=== PATIENT | female | born 1970 | race Caucasian/White ===

== ENCOUNTER 2025-08-28 21:26 | Emergency (ER) | payer OTHER, SELFPAY ==
--- OUTSIDE RECORDS SUMMARY | 2025-08-28 21:28 | XMS_ITS | Clinical Summary ---
Author Organization [employer] [facility] Address [address] [place] [address] Care Team Providers Care Flame Gouger Name Role Phone Day Vincent MD Primary Care Provider [phone] Sim Almazan MD Unavailable [phone] Allergies No known active allergies Medications No known medications Active Problems ProblemNoted DateDiagnosed DatePituitary igueef941666Klkznwhi84/12/2020 Ctngkihcwfbl95/12/2020History of Lyme ovrjfpc2301/05/2017Vitamin D deficiency 01/09/2014 Immunizations ImmunizationAdministration DatesNext DueCOVID-19 VACCINE SPIKEVAX (MODERNA 50MCG/0.5ML) 12YO+ PFS4COVID-19 vaccine (Pfizer-BioNTech 30mcg/0.3mL) 12YO+ BIVALENT MD IANV109/12/2021 Family History Medical HistoryRelationNameCommentsAlcohol/DrugFatherdrinks currently Cancer-colonFatherGlaucomaFatherNo Known ProblemsHalf-BrotherLung cancerMaternal GrandfatherDiabetesMaternal GrandmotherAlcohol/DrugMotherrecovering alcoholic DementiaMotherDiabetesMotherPsychiatric illnessMotherdepressionStrokeMotherTIA Coronary artery diseasePaternal GrandfatherCancer-breastPaternal Grandmother OsteoporosisPaternal GrandmotherDiabetesSistergestationalGood HealthSon 1 AllergiesSon 2Good HealthSon 2RelationNameStatusCommentsFatherAliveHalf-Brother AliveMaternal GrandfatherDeceasedMaternal GrandmotherDeceasedMotherAlivePaternal GrandfatherDeceasedPaternal GrandmotherDeceasedSisterAliveSon 1AliveSon 2Alive Social History Tobacco UseTypesPacks/DayYears UsedDateSmoking Tobacco: NeverSmokeless Tobacco: Never Tobacco Cessation:Counseling Given: Yes Alcohol UseStandard Drinks/WeekCommentsNo0 (1 standard drink = 0.6 oz pure alcohol)PHQ-2AnswerDate RecordedPHQ-2 TOTAL [id number] Connections AnswerDate RecordedFrequency of Communication with Friends and FamilyNot on file 04/30/2024Financial Resource StrainAnswerDate RecordedDifficulty of Paying Living Fciirrht140ifficulty of Paying Living ExpensesNot on file 04/28/2023Food InsecurityAnswerDate RecordedWorried About Running Out of Food in the Last Upmj468Transportation NeedsAnswerDate RecordedLack of Transportation (Medical)Housing StabilityAnswerDate RecordedUnable to Pay for Housing in the Last Evmo772regnantCommentsNoSex and Gender InformationValueDate RecordedSex Assigned at BirthNot on fileLegal SexFemale 09/12/2012 5:41 AM CSTGender IdentityNot on fileSexual OrientationNot on file Obstetrics History GravidaParaTermPretermABIABSABEctopicMultipleLivingLive Zazqba51799EfhxGiazjwtJO Total LaborLabor/2nd/0vmGsjuqdBfjKgafJlwuFLBSmwI8L6VfsnHptgReskFyhjBR Last Filed Vital Signs Vital SignReadingTime TakenCommentsBlood Tqgptdcs272/6703 2:45 PM CDT Sgijq097011/10/2023 2:45 PM BWGEhyleobkmpo27.8 ??C (98.3 ??F)12/04/2016 9:25 AM CDTRespiratory Ymai774012/04/2016 9:25 AM CDTOxygen Ofvvzjupjt01%04/28/2023 10:31 AM CDTInhaled Oxygen Concentration--Zqdile30.7 kg (122 lb 14.4 oz)11/10/2023 2:45 PM NXVIcvbhl774.6 cm (5' 9.53)03/17/2023 11:17 AM CDTBody Mass Index17.87 03/17/2023 11:17 AM CDT Plan of Treatment Health MaintenanceDue DateLast DoneCommentsHIV for age 15-6507/09/1984Hepatitis C screening for age 18-7907/09/1987Hepatitis B series for 19+ (1 of 3 - 19+ 3- dose series)1988Colonoscopy through age 7507/09/2014Pneumococcal series for age 50+ (1 of 1 - PCV)2019Zoster (shingles) series for age 50+ (1 of 2)2019Tetanus fceknvy82 (Declined)Mammogram for age 40-, 12/13/2012MI (ht and wt on same day) for age 18+ /, 12/17/2021, 05/09/2021, Additional history exists Depression screening for age 12+/, 04/29/2021, 10/12/2019, Additional history existsCOVID-19 vaccine series (2024- season)2025 09/20/2023, 07/13/2022, 08/07/2021, Additional history existsInfluenza Vaccine (#1)04/30/2025Lipids for age 45-7506004/29/2021ap test for age 21-65 , 05/09/2021, 12/10/2016, Additional history existsRSV vaccine for adults or (1 - 1-dose 75+ series)2044 Procedures Procedure NamePriorityDate/TimeAssociated DiagnosisCommentsGYN THIN PREP PAP SCREEN MFBOTHVkscxtx19/10/2021 2:50 PM CDT Screening for cervical cancer XR MAMMO NARGIS BILAT TKYWBXPiysadm71/07/2021 3:32 PM CDT Encounter for screening mammogram for malignant neoplasm of breast LIPID PANEL W REFLEX MEASURED SIKVfmscqt87/31/2021 3:28 PM CDT Retinal hemorrhage of both eyes from Last 3 Months or Most Recently Relevant to Health Maintenance Results * SALES HUNTER THIN PREP PAP SCREEN IMAGED [[id number]] (05/09/2021 2:50 PM CDT)Component ValueRef RangeTest MethodAnalysis TimePerformed AtPathologist SignatureCase ReportGynecologic Cytology Report ? Case: [id number] ? Authorizing Provider: ??Day Vincent MD ? Collected: ? 05/09/2021 1450 ? Ordering Location: ? [facility] ?? Received: ?05/09/2021 1525 ? Clinic ? First Screen: ?Lev Matos ? Rescreen: ?Howie Verduzco ? Pathologist: ? Miguel Olivo MD ? Specimen: ?SALES HUNTER ThinPrep Vial Screening, Cervical ? 05/26/2021 9:14 AM [facility]-CENTRAL LABORATORY INTERPRETATION/RESULTNEGATIVE FOR INTRAEPITHELIAL LESION OR MALIGNANCY (NIL) (none)05/26/2021 9:14 AM [facility]-CENTRAL LABORATORY at 0914 CDTOTHER NON-NEOPLASTIC FINDING(S)See Educational Notes and Kmnknuopixn21/27/2021 9:14 AM [facility]-CENTRAL LABORATORYOTHEREndometrial cells in a woman more than 45 years of age.05/26/2021 9:14 AM [facility]- CENTRAL LABORATORYEDUCATIONAL NOTES & SUGGESTIONSEndometrial cells after the age of 45, particularly out of phase or after menopause, may be associated with benign endometrium, hormonal alterations and less commonly with endometrial uterine abnormalities. Clinical correlation is recommended.05/26/2021 9:14 AM [facility] LABORATORY-CENTRAL LABORATORYSPECIMEN ADEQUACYSatisfactory for evaluation Endocervical component ysjjnbg5405/26/2021 9:14 AM [facility]- CENTRAL LABORATORYHPV REQUESTHPV and PAP05/26/2021 9:14 AM [facility]-CENTRAL LABORATORYDate of LMP 9:14 AM [facility]-CENTRAL LABORATORYLast Pap Date12/10 9:14 AM [facility] LABORATORY-CENTRAL LABORATORYLast Pap LsnfyiERV11/27/2021 9:14 AM [facility]-CENTRAL LABORATORYAbnormal Pap or [place] Bx in last 5 yyjjxVj6305/26/2021 9:14 AM [facility]AL LABORATORY Menstrual StatusRegular Rsbsxid3705/26/2021 9:14 AM [facility] LABORATORYColp Bx Done KxwyqCe4805/26/2021 9:14 AM [facility] LABORATORYAdditional InformationNone given05/26/2021 9:14 AM [facility] LABORATORYComment: Cytology is screened at [facility] - [address], [place] [address] and [facility] - [address], [place] [address] and [facility] - [address] [place] [address] Interpreted at [facility] - [address], [place] [address] Automated BuvcvkYdaumfklfa48/27/2021 9:14 AM [facility] LABORATORYComment:Specimen processed successfully by automated political research scientist device, ThinPrep Imaging System, [employer]ANCILLARY TESTING GYNHPV Ordered, Please see separate hxihbx0405/26/2021 9:14 AM [facility] LABORATORYNoteThe pap test is a screening technique, not a diagnostic procedure. It is used primarily to screen for squamous cancers and precursor lesions. Published studies have shown that it is subject to both false negative and false positive results. The pap test should not be used as the sole means to diagnose or exclude pre-malignant and malignant lesions.05/26/2021 9:14 AM [facility] LABORATORYSpecimen (Source)Anatomical Location / LateralityCollection Method / VolumeCollection TimeReceived TimeOther (Cervical) Non-Blood / Xcwnejr5505/09/2021 2:50 PM CDT05/09/2021 3:25 PM CDT Narrative Authorizing ProviderResult TypeResult StatusDay Vincent MD PATHOLOGY/CYTOLOGYFinal ResultPerforming OrganizationAddressCity/State/ZIP Code Phone Number [facility] [address] [place] [address], [place] * XR MAMMO NARGIS BILAT SCREEN (05/06/2021 3:32 PM CDT)Anatomical RegionLaterality ModalityBREASTS, Breast Left, Breast RightBilateralMammographySpecimen (Source)Anatomical Location / LateralityCollection Method / VolumeCollection TimeReceived Time Impressions 05/08/2021 4:23 PM CDT There is no radiographic evidence for malignancy. Recommend annual mammograms. MAMMOGRAM ASSESSMENT: ??ACR 1 Negative PATIENTS: You will also receive a letter with your examination results in an easy to read format. ??If you have questions about your results, please contact your referring provider. Narrative 05/08/2021 4:23 PM CDT For Patients: As a result of the Century Cures Act, medical imaging exams and procedure reports are released immediately into your electronic medical record. You may view this report before your referring provider. If you have questions, please contact your health care provider. XR MAMMO NARGIS BILAT SCREEN [[id number]] CLINICAL HISTORY: ??This is an asymptomatic 50 y.o. patient. INDICATION FOR EXAM: Mammogram Screening. TECHNIQUE: CC & MLO views were obtained. This study was evaluated with the assistance of Computer-Aided Detection. Breast Tomosynthesis was used in interpretation. COMPARISON FILM: Yes 12/13/12 [employer] ?? FINDINGS: ??The breasts are heterogeneously dense, which may obscure small masses. There are no dominant masses, suspicious micro calcifications or areas of architectural distortion. Authorizing ProviderResult TypeResult StatusMelkandi Vincent MDMAMMOFinal Result * (ABNORMAL) LIPID PANEL W REFLEX MEASURED LDL (04/29/2021 3:28 PM CDT)Component ValueRef RangeTest MethodAnalysis TimePerformed AtPathologist Signature CHOLESTEROL,RKYMO298(H)100 - 199 mg/dL04/30/2021 2:28 PM [facility] LABORATORY-CENTRAL DSCGVACLTJPWAAWYCLXDEXI47<150 mg/dL04/30/2021 2:28 PM CDT [facility] LABORATORY-CENTRAL LABORATORYHDL QUYBYQQNGMS518>40 mg/dL 04/30/2021 2:28 PM [facility] LABORATORY-CENTRAL LABORATORYNON-HDL ODYKYCNIADG914(H)<145 mg/dl04/30/2021 2:28 PM [facility] LABORATORY- CENTRAL LABORATORYCHOL/HDL RATIO2.69<4.5009 2:28 PM [facility] LABORATORY-CENTRAL LABORATORYLDL NTMEJARTZBA409(H)<=130 mg/dL04/30/2021 2:28 PM [facility]-CENTRAL LABORATORYVLDL YSRDNSNGRBZ30ts/dL 04/30/2021 2:28 PM [facility]-CENTRAL LABORATORYPROVIDER ORDERED WTFEIELFIAVN32/01/2021 2:28 PM [facility] Specimen (Source)Anatomical Location / LateralityCollection Method / Volume Collection TimeReceived TimeBloodBLOOD SPECIMEN / UnknownVenipuncture / Pldbtfw8104/29/2021 3:28 PM CDT04/29/2021 3:28 PM CDT Narrative Authorizing ProviderResult TypeResult StatusMelissa Otilio Vincent MDCHEMISTRYFinal ResultPerforming OrganizationAddressCity/State/ZIP CodePhone Number [facility] [address] [place] [address], [facility] [address] [place], [place] [address] [phone] from Last 3 Months or Most Recently Relevant to Health Maintenance Insurance Care Teams Team MemberRelationshipSpecialtyStart DateEnd Date Day Vincent MD [address] [place] [address] PCP - GeneralFamily Practice04/30/17 Sim Almazan MD [address] [facility] [address] [facility] [address] [place] [address] Endocrinology01/13/23
[2025-08-28 21:41] VITALS: BP 115/77; PULSE 79; RESP 16; TEMP 36.4; O2SAT 99; BMI 18.2
--- OUTSIDE RECORDS SUMMARY | 2025-08-29 00:25 | XMS_ITS | Clinical Summary ---
Author Organization [facility] Address [address] [place] [address] Care Team Providers Care Wire Straightener Name Role Phone Day Vincent MD Primary Care Provider [phone] Sim Almazan MD Unavailable [phone] Allergies No known active allergies Medications No known medications Active Problems ProblemNoted DateDiagnosed DatePituitary bdxmgx0012/17/20211654Oywyifax47/12/2020 Klkkyjkrlqfw85/12/2020History of Lyme rkvcqsq1001/05/2017Vitamin D deficiency 01/09/2014 Encounters DateTypeDepartmentCare GfzrOkgkfitbufv17/30/2025Nurse Triage [facility] [address] [place] [address] Day Vincent MD Vision Changefrom Last 3 Months Immunizations ImmunizationAdministration DatesNext DueCOVID-19 VACCINE SPIKEVAX (MODERNA [...] = 0.6 oz pure alcohol)PHQ-2AnswerDate RecordedPHQ-2 TOTAL [id number] Connections AnswerDate RecordedFrequency of Communication with Friends and FamilyNot on file 04/30/2024Financial Resource StrainAnswerDate RecordedDifficulty of Paying Living Oanejvdm597ifficulty of Paying Living ExpensesNot on file 04/28/2023Food InsecurityAnswerDate RecordedWorried About Running Out of Food in the Last Qvtk679Transportation NeedsAnswerDate RecordedLack of Transportation (Medical)Housing StabilityAnswerDate RecordedUnable to Pay for Housing in the Last Wvhg691regnantCommentsNoSex and Gender InformationValueDate RecordedSex Assigned at BirthNot on fileLegal SexFemale 09/12/2012 5:41 AM CSTGender IdentityNot on fileSexual OrientationNot on file Obstetrics History GravidaParaTermPretermABIABSABEctopicMultipleLivingLive Iueutd79748HxueNoktaemJD Total LaborLabor/2nd/7hhPkcvfvBidRopdDrfuDAOKljC9Q6TadnKumySakfEjxrBL Last Filed Vital Signs Vital SignReadingTime TakenCommentsBlood Rgskiwhc934/6703 2:45 PM CDT Lilrl4003 2:45 PM HIFJhtsuccfmnh60.8 ??C (98.3 ??F)12/04/2016 9:25 AM CDTRespiratory Udix857912/04/2016 9:25 AM CDTOxygen Agjjkidokj96%04/28/2023 10:31 AM CDTInhaled Oxygen Concentration--Nfmogs61.7 kg (122 lb 14.4 oz)11/10/2023 2:45 PM WZUJlktrr376.6 cm (5' 9.53)03/17/2023 11:17 AM CDTBody Mass Index17.87 03/17/2023 11:17 AM CDT Plan of Treatment Health MaintenanceDue DateLast DoneCommentsHIV for age 15-6507/09/1984Hepatitis C screening for age 18-7907/09/1987Hepatitis B series for 19+ (1 of 3 - 19+ 3- dose series)1988Colonoscopy through age 7507/09/2014Pneumococcal series for age 50+ (1 of 1 - PCV)2019Zoster (shingles) series for age 50+ (1 of 2)2019Tetanus ijnhlkg29/17/ (Declined)Mammogram for age 40-7509/, 12/13/2012MI (ht and wt on same day) for age 18+ , 12/17/2021, 05/09/2021, Additional history exists Depression screening for age 12+, 04/29/2021, 10/12/2019, Additional history existsCOVID-19 vaccine series (2024- season)2025 09/20/2023, 07/13/2022, 08/07/2021, Additional history existsInfluenza Vaccine (#1)04/30/2025Lipids for age 45-7508ap test for age 21-65 , 05/09/2021, 12/10/2016, Additional history existsRSV vaccine for adults or (1 - 1-dose 75+ series)2044 Procedures Procedure NamePriorityDate/TimeAssociated DiagnosisCommentsGYN THIN PREP PAP SCREEN TOIVGWFqgdufl66/10/2021 2:50 PM CDT Screening for cervical cancer XR MAMMO NARGIS BILAT KCHALIZdndzvf44/07/2021 3:32 PM CDT Encounter for screening mammogram for malignant neoplasm of breast LIPID PANEL W REFLEX MEASURED DAESjwacng11/31/2021 3:28 PM CDT Retinal hemorrhage of both eyes from Last 3 Months or Most Recently Relevant to Health Maintenance Results * BOBBIN MARKER THIN PREP PAP SCREEN IMAGED [[id number]] (05/09/2021 2:50 PM CDT)Component ValueRef RangeTest MethodAnalysis TimePerformed AtPathologist SignatureCase ReportGynecologic Cytology Report ? Case: [id number] ? Authorizing Provider: ??Day Vincent MD ? Collected: ? 05/09/2021 1450 ? Ordering Location: ? [facility] ?? Received: ?05/09/2021 1525 ? Clinic ? First Screen: ?Lev Matos ? Rescreen: ?Howie Verduzco ? Pathologist: ? Miguel Olivo MD ? Specimen: ?BOBBIN MARKER ThinPrep Vial Screening, Cervical ? 05/26/2021 9:14 AM [facility] LAB[facility]-CENTRAL LABORATORY INTERPRETATION/RESULTNEGATIVE FOR INTRAEPITHELIAL LESION OR MALIGNANCY (NIL) (none)05/26/2021 9:14 AM [facility]-CENTRAL LABORATORY at 0914 CDTOTHER NON-NEOPLASTIC FINDING(S)See Educational Notes and Omwpzklnwop17/27/2021 9:14 AM [facility] LABORATORY-CENTRAL LABORATORYOTHEREndometrial cells in a woman more than 45 years of age.05/26/2021 9:14 AM [facility] LABORATORY- CENTRAL LABORATORYEDUCATIONAL NOTES & SUGGESTIONSEndometrial cells after the age of 45, particularly out of phase or after menopause, may be associated with benign endometrium, hormonal alterations and less commonly with endometrial uterine abnormalities. Clinical correlation is recommended.05/26/2021 9:14 AM [facility] LABORATORY-CENTRAL LABORATORYSPECIMEN ADEQUACYSatisfactory for evaluation Endocervical component qprkavv8505/26/2021 9:14 AM [facility] LABORATORY- CENTRAL LABORATORYHPV REQUESTHPV and PAP05/26/2021 9:14 AM [facility]ARTFlex[facility] LABORATORY-CENTRAL LABORATORYDate of LMP 9:14 AM [facility]Flex[facility] LABORATORY-CENTRAL LABORATORYLast Pap Date4/05/26/2021 9:14 AM CDT [facility]-CENTRAL LABORATORYLast Pap NizkncQLC44/27/2021 9:14 AM [facility]TRAL LABORATORYAbnormal Pap or [place] Bx in last 5 bzmneOz9505/26/2021 9:14 AM [facility] Menstrual StatusRegular Jhewrba7805/26/2021 9:14 AM [facility] LABORATORYColp Bx Done ZzymaYo7405/26/2021 9:14 AM [facility] LABORATORYAdditional InformationNone given05/26/2021 9:14 AM [facility] LABORATORYComment: Cytology is screened at [facility] - [address], [place] [address] and [facility] - [address] [place] [address] and [facility] - [address] [place] [address] Interpreted at [facility] - [address], [place] [address] Automated DcbmluNymjaxiura08/27/2021 9:14 AM [facility] LABORATORYComment:Specimen processed successfully by automated electric mule operator device, ThinPrep Imaging System, [employer]ANCILLARY TESTING GYNHPV Ordered, Please see separate vqcifj6405/26/2021 9:14 AM [facility] LABORATORYNoteThe pap test is a screening technique, not a diagnostic procedure. It is used primarily to screen for squamous cancers and precursor lesions. Published studies have shown that it is subject to both false negative and false positive results. The pap test should not be used as the sole means to diagnose or exclude pre-malignant and malignant lesions.05/26/2021 9:14 AM [facility]ITCENTRAL LABORATORYSpecimen (Source)Anatomical Location / LateralityCollection Method / VolumeCollection TimeReceived TimeOther (Cervical) Non-Blood / Mcreere0305/09/2021 2:50 PM CDT05/09/2021 3:25 PM CDT Narrative Authorizing ProviderResult TypeResult StatusDay Vincent MD PATHOLOGY/CYTOLOGYFinal ResultPerforming OrganizationAddressCity/State/ZIP Code Phone Number [facility]AL LABORATORY [address] [place] [address], [place] * XR MAMMO NARGIS BILAT SCREEN [...] For Patients: As a result of the Cures Act, medical imaging exams and procedure reports are released immediately into your electronic medical record. You may view this report before your referring provider. If you have questions, please contact your health care provider. XR MAMMO NARGIS BILAT SCREEN [[id number]] CLINICAL HISTORY: ??This is an asymptomatic 50 y.o. patient. INDICATION FOR EXAM: Mammogram Screening. TECHNIQUE: CC & MLO views were obtained. This study was evaluated with the assistance of Computer-Aided Detection. Breast Tomosynthesis was used in interpretation. COMPARISON FILM: Yes 12/13/12 [facility] [employer] ?? FINDINGS: ??The breasts are heterogeneously dense, which may obscure small masses. There are no dominant masses, suspicious micro calcifications or areas of architectural distortion. Authorizing ProviderResult TypeResult StatusMelkandi Vincent MDMAMMOFinal Result * (ABNORMAL) LIPID PANEL W REFLEX MEASURED LDL (04/29/2021 3:28 PM CDT)Component ValueRef RangeTest MethodAnalysis TimePerformed AtPathologist Signature CHOLESTEROL,RSYFU334(H)100 - 199 mg/dL04/30/2021 2:28 PM [facility] LABORATORY-CENTRAL AFYGJJHWODPYUACHGHJCZXZ04<150 mg/dL04/30/2021 2:28 PM CDT [facility]-CENTRAL LABORATORYHDL EUSKJDEDAPV851>40 mg/dL 04/30/2021 2:28 PM [facility]-CENTRAL LABORATORYNON-HDL KVRGJKSWMTK476(H)<145 mg/dl04/30/2021 2:28 PM [facility]- CENTRAL LABORATORYCHOL/HDL RATIO2.69<4.50004/30/2021 2:28 PM [facility]-CENTRAL LABORATORYLDL ECFPJIGQQMZ197(H)<=130 mg/dL04/30/2021 2:28 PM [facility]-CENTRAL LABORATORYVLDL ZZBBPCPNYWI46ag/dL 04/30/2021 2:28 PM [facility]ITCENTRAL LABORATORYPROVIDER ORDERED YDZGJWGHUMUL41/01/2021 2:28 PM [facility] Specimen (Source)Anatomical Location / LateralityCollection Method / Volume Collection TimeReceived TimeBloodBLOOD SPECIMEN / UnknownVenipuncture / Gzqeuwh3804/29/2021 3:28 PM CDT04/29/2021 3:28 PM CDT Narrative Authorizing ProviderResult TypeResult StatusMelissa Otilio Vincent MDCHEMISTRYFinal ResultPerforming OrganizationAddressCity/State/ZIP CodePhone Number [facility] [address] [place] [address], [facility] [address] [place], [place] [address] [phone] from Last 3 Months or Most Recently Relevant to Health Maintenance Insurance [employer] [id number] Care Teams Team MemberRelationshipSpecialtyStart DateEnd Day Vincent MD [address] [place] [address] PCP - GeneralFamily Practice04/30/17 Sim Almazan MD [address] [place] [address] Endocrinology01/13/23
== END 2025-08-29 00:24 | disposition left against medical advice (07) ==
LOC: ED 08-29 00:22
PROVIDERS: Emergency Provider Family Medicine
DX: Z53.21 Procedure and treatment not carried out due to patient leaving prior to being seen by health care provider (principal)